=== PATIENT | male | born 1975 | race Caucasian/White ===

== ENCOUNTER 2023-12-12 03:00 | Emergency (ER) | payer SELFPAY ==
[~2023-12-12] VITALS: Ht 177.8 cm; Wt 82.6 kg
[2023-12-12 03:03] VITALS: BP 150/89; PULSE 108; RESP 17; TEMP 98.2; O2SAT 96
[2023-12-12] MEDS: HYDROcodone/APAP 5/325 MG 1 TAB TAB PO ONE (04:26)
[2023-12-12 05:20] VITALS: BP 140/87; PULSE 104; RESP 17; TEMP 98.2; O2SAT 97
== END 2023-12-12 05:20 ==
LOC: MED 03:00
DX: S53.401A Unspecified sprain of right elbow, initial encounter (principal); J45.909 Unspecified asthma, uncomplicated; Y04.8XXA Assault by other bodily force, initial encounter; Y93.89 Activity, other specified; Y92.89 Other specified places as the place of occurrence of the external cause; Y99.8 Other external cause status
CPT/HCPCS: 70450; 71250; 72125; 73080; 74176; 99284; Q0092